=== PATIENT | male | born 1970 | race Caucasian/White ===

== ENCOUNTER 2022-07-10 11:32 | Emergency (ER) | payer OTHER ==
[~2022-07-10] VITALS: Ht 170.2 cm; Wt 90.7 kg
[2022-07-10] MEDS ORDERED: TESTIM5 GM TOP (12:41)
[2022-07-10] MEDS ORDERED: BUTRANS1 EAC4 TD (12:41)
== END 2022-07-10 14:12 | disposition home or self-care (01) ==
LOC: ER 11:32
DX: S01.80XA Unspecified open wound of other part of head, initial encounter (principal); W08.XXXA Fall from other furniture, initial encounter; Y93.9 Activity, unspecified; Y92.9 Unspecified place or not applicable; Y99.9 Unspecified external cause status